=== PATIENT | male | born 1945 | race Caucasian/White ===

== ENCOUNTER 2019-08-16 15:44 | Emergency (ER) | payer MEDICARE ==
[2019-08-16] MEDS ORDERED: LISINOPRIL20 MG PO (16:10)
[2019-08-16] MEDS ORDERED: CITALOPRAM20 M1 PO (16:11)
[2019-08-16] MEDS ORDERED: SIMVASTATIN40 MG PO (16:11)
[2019-08-16] MEDS ORDERED: LEVOTHYROXIN137 MCG PO (16:11)
[2019-08-16] MEDS ORDERED: VITAMIN B-12500 MCG PO (16:12)
[2019-08-16] MEDS ORDERED: KEFLEX500 M1 PO (16:40)
[2019-08-16] MEDS ORDERED: BACTROBAN TOP (16:41)
[2019-08-16 16:45] VITALS: BP 166/94
== END 2019-08-16 16:45 | disposition home or self-care (01) ==
LOC: ED 15:44
PROC: 2W3KX1Z Immobilization of Left Finger using Splint (ICD-10-PCS; principal; 2019-08-16)
DX: S61.311A Laceration without foreign body of left index finger with damage to nail, initial encounter (principal); I10 Essential (primary) hypertension; W31.2XXA Contact with powered woodworking and forming machines, initial encounter; Y93.89 Activity, other specified; Y92.009 Unspecified place in unspecified non-institutional (private) residence as the place of occurrence of the external cause